=== PATIENT | male | born 1995 | race Caucasian/White ===

== ENCOUNTER 2021-06-27 06:54 | Emergency (ER) | payer OTHER ==
[~2021-06-27] VITALS: Ht 180.3 cm; Wt 88.9 kg
[2021-06-27] MEDS ORDERED: TAMSULOSIN HCL0.4 MG PO (13:11)
[2021-06-27] MEDS ORDERED: CIPRO500 MG PO (13:13)
[2021-06-27] MEDS ORDERED: NORFLEX100MG PO (13:13)
[2021-06-27] MEDS ORDERED: KETO10TA2 PO (13:14)
== END 2021-06-27 14:33 | disposition home or self-care (01) ==
LOC: ER 06:54
DX: M62.830 Muscle spasm of back (principal); N39.0 Urinary tract infection, site not specified